=== PATIENT | male | born 1990 | race Caucasian/White ===

== ENCOUNTER 2020-01-03 19:11 | Emergency (ER) | payer OTHER ==
[~2020-01-03] VITALS: Ht 180.3 cm; Wt 102.1 kg
[2020-01-03 19:31] VITALS: Ht 180.3 cm; Wt 102.1 kg
[2020-01-03 19:37] LABS: RED CELL DISTRIBUTION WIDTH 13.4 % (11.5-14.5)
[2020-01-03 19:40] LABS: BASOPHIL % 0 % (0-2); PLATELET COUNT 126 x10^3mcL (130-400)
[2020-01-03 19:49] LABS: CALCIUM 9.8 mg/dL (8.5-10.1); CHLORIDE SERUM 96 mmol/L (98-107); CREATININE SERUM 0.8 mg/dL (0.7-1.3); GFR1 > 60 mL/min; GLUCOSE SERUM 172 mg/dL (74-106); POTASSIUM SERUM 3.6 mmol/L (3.5-5.1); SODIUM SERUM 133 mmol/L (136-145)
[2020-01-03 20:02] LABS: ALBUMIN 3.8 g/dL (3.4-5.0); ALKALINE PHOSPHATASE 153 U/L (46-116); ALT/SGPT 73 U/L (16-63); AST/SGOT 45 U/L (15-37); BILIRUBIN TOTAL 1.3 mg/dL (0.20-1.00); T4(THYROXINE) 7.9 ug/dL (4.7-13.3)
[2020-01-03 20:08] LABS: TOTAL PROTEIN, SERUM 8.3 g/dL (6.4-8.2)
[2020-01-03 21:56] LABS: AMPHETAMINE QUAL UR NONE DETECTED (See below)
[2020-01-03 22:28] VITALS: BP 139/82
== END 2020-01-03 22:28 | disposition home or self-care (01) ==
LOC: ED 19:11
PROVIDERS: Emergency Medicine
DX: R56.9 Unspecified convulsions (principal); M79.81 Nontraumatic hematoma of soft tissue; F10.239 Alcohol dependence with withdrawal, unspecified; F12.90 Cannabis use, unspecified, uncomplicated; R51.9 Headache, unspecified; R53.1 Weakness
CPT/HCPCS: Q0092